=== PATIENT | female | born 1965 | race African-American/Black ===

== ENCOUNTER 2018-01-21 06:11 | Emergency (ER) | payer MEDICARE, MEDICAID ==
[~2018-01-21] VITALS: Ht 160 cm; Wt 94.0 kg
[2018-01-21] MEDS ORDERED: KETOROLAC 60MG/2ML VIAL IM ONE (07:15)
[2018-01-21] MEDS ORDERED: HYDROCHLOROTHIAZIDE (08:21)
[2018-01-21] MEDS ORDERED: ATENOLOL (08:21)
[2018-01-21] MEDS ORDERED: HYDROCHLOROTHIAZIDE 25MG TABLET PO ONE (08:30)
[2018-01-21 09:15] VITALS: BP 176/112
== END 2018-01-21 09:53 | disposition home or self-care (01) ==
LOC: ER 06:35
DX: S40.011A Contusion of right shoulder, initial encounter (principal); M25.461 Effusion, right knee; M17.11 Unilateral primary osteoarthritis, right knee; I10 Essential (primary) hypertension; W01.0XXA Fall on same level from slipping, tripping and stumbling without subsequent striking against object, initial encounter; Y93.89 Activity, other specified; Y92.89 Other specified places as the place of occurrence of the external cause; Y99.8 Other external cause status
CPT/HCPCS: 73030; 73562; 96372; 99284; J1885

== ENCOUNTER 2019-06-03 08:57 | Emergency (ER) | payer MEDICARE, MEDICAID ==
[~2019-06-03] VITALS: Ht 165.1 cm; Wt 88.0 kg
[~2019-06-03 08:57] MED LIST: ATENOLOL; HYDROCHLOROTHIAZIDE
[2019-06-03 09:31] VITALS: BP 132/85
[2019-06-03] MEDS ORDERED: DIPHENHYDRAMINE 50MG/ML VIAL IM ONE (10:30)
== END 2019-06-03 10:52 | disposition home or self-care (01) ==
LOC: ER 08:57
DX: D17.1 Benign lipomatous neoplasm of skin and subcutaneous tissue of trunk (principal); I10 Essential (primary) hypertension
CPT/HCPCS: 96372; 99283; J1200

== ENCOUNTER 2020-05-13 15:51 | Emergency (ER) | payer MEDICARE, MEDICAID ==
[~2020-05-13] VITALS: Ht 167.6 cm; Wt 81.0 kg
[2020-05-13 15:54] VITALS: BP 147/96
== END 2020-05-13 17:35 | disposition home or self-care (01) ==
LOC: ER 15:51
DX: I10 Essential (primary) hypertension (principal)
CPT/HCPCS: 99283

== ENCOUNTER 2020-10-29 20:40 | Emergency (ER) | payer MEDICARE, MEDICAID ==
[~2020-10-29] VITALS: Ht 160 cm; Wt 90.0 kg
[2020-10-29] MEDS ORDERED: DIPHENHYDRAMINE 50MG/ML VIAL IM ONE (21:30)
[2020-10-29] MEDS ORDERED: DIPH25CA83 PO (22:48)
[2020-10-29] MEDS ORDERED: TC1U15 TP (22:48)
[2020-10-29 23:21] VITALS: BP 160/100
== END 2020-10-29 23:26 | disposition home or self-care (01) ==
LOC: ER 20:40
DX: L30.9 Dermatitis, unspecified (principal); I10 Essential (primary) hypertension
CPT/HCPCS: 99281; 99282

== ENCOUNTER 2020-12-01 13:17 | Emergency (ER) | payer MEDICARE, MEDICAID ==
[~2020-12-01] VITALS: Ht 167.6 cm; Wt 91.0 kg
[~2020-12-01 13:17] MED LIST changes: +DIPH25CA83 PO; +TC1U15 TP
[2020-12-01] MEDS ORDERED: IBUPROFEN 600MG TABLET PO ONE (16:30)
[2020-12-01] MEDS ORDERED: DEXAMETHASONE 4MG/ML 1ML VIAL IM SCH (16:30)
[2020-12-01] MEDS ORDERED: DIPHENHYDRAMINE 25MG CAPSULE PO ONE (16:30)
[2020-12-01] MEDS ORDERED: DIPH25CA83 MT (16:32)
[2020-12-01] MEDS ORDERED: TC1U15 TP (16:33)
[2020-12-01] MEDS ORDERED: CELE100C MT (16:33)
[2020-12-01 16:45] VITALS: BP 165/93
== END 2020-12-01 16:54 | disposition home or self-care (01) ==
LOC: ER 13:17
DX: M54.9 Dorsalgia, unspecified (principal); G89.29 Other chronic pain; L30.9 Dermatitis, unspecified; I10 Essential (primary) hypertension; Z79.899 Other long term (current) drug therapy
CPT/HCPCS: 96372; 99283; J1100; Q0163

== ENCOUNTER 2021-08-07 13:12 | Emergency (ER) | payer MEDICAID, MEDICARE ==
[~2021-08-07] VITALS: Ht 170.2 cm; Wt 98.0 kg
[~2021-08-07 13:12] MED LIST changes: +CELE100C MT; +DIPH25CA83 MT
[2021-08-07] MEDS ORDERED: IBUPROFEN 400MG TABLET PO ONE (14:30)
[2021-08-07 20:53] LABS: BASOPHILS % 0.4 % (0.0-2.0); EOSINOPHILS % 0.6 % (0.0-5.0); HEMATOCRIT. 33.1 % (36.0-48.0); HEMOGLOBIN. 10.9 g/dL (12.0-16.0); LYMPHOCYTES % 19.1 % (20.0-50.0); MEAN CORPUSCULAR HEMOGLOBIN 28.1 pg (28.0-32.0); MEAN CORPUSCULAR VOLUME 85.5 fL (81.0-99.0); MEAN PLATELET VOLUME 7.6 fl (7.4-10.4); MONOCYTES % 9.2 % (2.0-8.0); NEUTROPHILS % 70.7 % (40.0-76.0); PLATELET 288 x1000/uL (130-400); RED BLOOD CELL COUNT 3.87 mill/uL (4.2-5.4); RED CELL DISTRIBUTION WIDTH 14.8 % (11.6-14.6)
[2021-08-07 20:58] LABS: CHLORIDE 108 mEq/L (98-107)
[2021-08-07] MEDS ORDERED: CEFAZOLIN 1000MG PREMIX 50 ML IV ONE (21:00)
[2021-08-07 21:02] LABS: ETHANOL BLOOD < 10 mg/dL
[2021-08-07] MEDS ORDERED: CEPH500C2 MT (23:13)
[2021-08-07] MEDS ORDERED: ACET-2708 MT (23:13)
[2021-08-08 00:40] VITALS: BP 121/71
== END 2021-08-08 02:13 | disposition home or self-care (01) ==
LOC: ER 13:12
DX: M25.562 Pain in left knee (principal); L03.115 Cellulitis of right lower limb; I10 Essential (primary) hypertension; Z98.890 Other specified postprocedural states; Z68.33 Body mass index [BMI] 33.0-33.9, adult
CPT/HCPCS: 36415; 71045; 73560; 80053; 80320; 85025; 93970; 96365; 99285; J0690; G0480

== ENCOUNTER 2021-12-17 20:10 | Emergency (ER) | payer MEDICARE, MEDICAID ==
[~2021-12-17] VITALS: Ht 160 cm; Wt 87.3 kg
[~2021-12-17 20:10] MED LIST changes: +ACET-2708 MT; +CEPH500C2 MT
[2021-12-17] MEDS ORDERED: KETOROLAC 15MG/ML VIAL IV ONE (21:45)
[2021-12-17] MEDS ORDERED: SODIUM CHLORIDE 0.9% 1,000 ML IV ONE (21:45)
[2021-12-17 23:29] LABS: BASOPHILS % 0.1 % (0.0-2.0); EOSINOPHILS % 0.1 % (0.0-5.0); HEMATOCRIT. 47.9 % (36.0-48.0); HEMOGLOBIN. 15.6 g/dL (12.0-16.0); LYMPHOCYTES % 12.8 % (20.0-50.0); MEAN CORPUSCULAR HEMOGLOBIN 28.3 pg (28.0-32.0); MEAN CORPUSCULAR VOLUME 87.1 fL (81.0-99.0); MEAN PLATELET VOLUME 8.4 fl (7.4-10.4); MONOCYTES % 5.2 % (2.0-8.0); NEUTROPHILS % 81.8 % (40.0-76.0); PLATELET 296 x1000/uL (130-400); RED CELL DISTRIBUTION WIDTH 16.6 % (11.6-14.6)
[2021-12-17 23:35] LABS: CHLORIDE 105 mEq/L (98-107)
[2021-12-17 23:44] LABS: ETHANOL BLOOD < 10 mg/dL
[2021-12-18] MEDS ORDERED: IBUP-2028 MT (01:20)
[2021-12-18 02:50] VITALS: BP 130/74
== END 2021-12-18 02:52 | disposition home or self-care (01) ==
LOC: ER 20:10
DX: S62.397A Other fracture of fifth metacarpal bone, left hand, initial encounter for closed fracture (principal); S09.8XXA Other specified injuries of head, initial encounter; R53.1 Weakness; Y07.499 Other family member, perpetrator of maltreatment and neglect; Y08.02XA Assault by strike by baseball bat, initial encounter; Y93.89 Activity, other specified; Y92.89 Other specified places as the place of occurrence of the external cause; R94.31 Abnormal electrocardiogram [ECG] [EKG]; I10 Essential (primary) hypertension; H54.61 Unqualified visual loss, right eye, normal vision left eye
CPT/HCPCS: 36415; 70450; 73110; 73130; 80053; 80320; 84484; 85025; 93005; 96374; 99285; J1885; J7030; G0480